=== PATIENT | female | born 1930 | race Caucasian/White ===

== ENCOUNTER 2018-01-13 11:26 | Observation (INO) | payer MEDICARE ==
[2018-01-13 13:17] LABS: VENOUS BLOOD GAS BASE EXCESS 4.7 mmol/L (0.0-2.0); VENOUS BLOOD GAS PCO2 58 mmHg (40-60); VENOUS BLOOD GAS PO2 22 mm/Hg (30-55); VENOUS BLOOD PH 7.35 (7.32-7.43)
--- NOTE | 2018-01-13 13:33 | ED PDOC ---
HPI: Skin/Bite Injury Chief Complaint (Provider): Redness, itchiness of the left arm History Per: Patient History/Exam Limitations: no limitations Onset/Duration Of Symptoms: Days Current Symptoms Are (Timing): Still Present Quality Of Symptoms: Painful, Itching Additional Complaint(s): 87 yo female with HTN and gastritis presents for evaluation of left arm pain and redness. Pt states 1 week ago she was walking by a plant which made her arm itchy. Pt states she does not know what type of plant but that it is bad because it will make your skin itchy. Pt states it has been itchy and has been getting more and more red. Pt states she otherwise feels well. Pt states that she also tripped a few days ago and caught herself against a wall with her left hand. <Halley Alvarado - Last Filed: 01/13/18 15:28> <Ramin Nolan - Last Filed: 01/13/18 18:25> Time Seen by Provider: 01/13/18 11:48 Chief Complaint (Nursing): Abnormal Skin Integrity Past Medical History Reviewed: Historical Data, Nursing Documentation, Vital Signs Vital Signs: Last Vital Signs Temp 97.9 F 01/13/18 11:49 Pulse 76 01/13/18 11:49 Resp 20 01/13/18 11:49 BP 143/67 01/13/18 11:49 Pulse Ox 98 01/13/18 11:49 - Medical History PMH: HTN - Surgical History Surgical History: No Surg Hx - Family History Family History: States: No Known Family Hx - Living Arrangements Living Arrangements: With Family <Halley Alvarado - Last Filed: 01/13/18 15:28> Vital Signs: Last Vital Signs Temp 98.4 F 01/13/18 18:12 Pulse 65 01/13/18 18:12 Resp 16 01/13/18 18:12 BP 150/84 01/13/18 18:12 Pulse Ox 99 01/13/18 16:15 <Ramin Nolan - Last Filed: 01/13/18 18:25> - Home Medications Home Medications: Ambulatory Orders Medication Instructions Recorded Furosemide [Lasix] 80 mg PO MO 01/13/18 Metoprolol Tartrate [Lopressor] 100 mg PO Q12 01/13/18 Pantoprazole Sodium [Protonix] 40 mg PO DAILY 01/13/18 RX: Hydroxyurea [Hydrea] 500 mg PO HS 01/13/18 RX: Ibuprofen [Motrin Tab] 600 mg PO Q8 PRN 01/13/18 RX: Meclizine [Meclizine*] 25 mg PO Q8 PRN 01/13/18 - Allergies Allergies/Adverse Reactions: Allergies Allergy/AdvReac Type Severity Reaction Status Date / Time No Known Allergies Allergy Verified 01/13/18 11:49 Review of Systems ROS Statement: Except As Marked, All Systems Reviewed And Found Negative Constitutional: Negative for: Fever, Chills Skin: Positive for: Other <Halley Alvarado - Last Filed: 01/13/18 15:28> Physical Exam - Reviewed Nursing Documentation Reviewed: Yes Vital Signs Reviewed: Yes - Physical Exam Appears: Positive for: Well, Non-toxic, No Acute Distress Head Exam: Positive for: ATRAUMATIC, NORMAL INSPECTION, NORMOCEPHALIC Skin: Positive for: Warm. Negative for: Normal Color ((+) erythema and edema of the left arm from mid-humerus to the mid-forearm, central open area; non- blanching ) Eye Exam: Positive for: Normal appearance ENT: Positive for: Normal ENT Inspection Neck: Positive for: Normal, Painless ROM Cardiovascular/Chest: Positive for: Regular Rate, Rhythm Respiratory: Positive for: Normal Breath Sounds. Negative for: Accessory Muscle Use, Respiratory Distress Back: Positive for: Normal Inspection Extremity: Positive for: Normal ROM Neurologic/Psych: Positive for: Alert, Oriented <Halley Alvarado - Last Filed: 01/13/18 15:28> - Laboratory Results Result Diagrams: 01/13/18 13:14 01/13/18 13:14 - ECG O2 Sat by Pulse Oximetry: 98 <Halley Alvarado - Last Filed: 01/13/18 15:28> - Laboratory Results Result Diagrams: 01/13/18 13:14 01/13/18 13:14 <Ramin Nolan - Last Filed: 01/13/18 18:25> Medical Decision Making Medical Decision Making: Labs normal. Pt seen and examined by Dr. Nolan. Discussed admission with Dr. Quesada <Halley Alvarado - Last Filed: 01/13/18 15:28> Disposition - Disposition Disposition: Routine/Home Disposition Time: 16:14 - Pt Status Changed To: Hospital Disposition Of: Observation - Admit Certification Admit to Inpatient:: OBS M/S - POA Present On Arrival: None <Halley Alvarado - Last Filed: 01/13/18 15:28> <Ramin Nolan - Last Filed: 01/13/18 18:25> - Clinical Impression Clinical Impression: Cellulitis - Disposition Condition: GOOD Instructions: Cellulitis and Erysipelas (Skin Infections) Forms: [facility] [employer] (Japanese) Addendum Addendum: 01/13/18 18:25 Reviewed PA chart, and agree. <Ramin Nolan - Last Filed: 01/13/18 18:25>
[2018-01-13 13:50] LABS: BASO # 0.3 K/uL (0.0-0.2); BASO % 4.7 % (0.0-2.0); EOS # 0.6 K/uL (0.0-0.7); EOS % 8.6 % (0.0-4.0); HEMOGLOBIN 17.2 g/dL (12.0-16.0); LYMPH # 1.4 K/uL (1.0-4.3); LYMPH % 20.3 % (20.0-40.0); MEAN CELL VOLUME 73.8 fl (81.0-99.0); MEAN CORPUSCULAR HEMOGLOBIN 23.4 pg (27.0-31.0); MEAN CORPUSCULAR HGB CONC 31.8 g/dL (33.0-37.0); MEAN PLATELET VOLUME 8.9 fl (7.2-11.7); MONO # 0.6 K/uL (0.0-0.8); MONO % 8.7 % (0.0-10.0); NEUT # 3.9 K/uL (1.8-7.0); NEUT % 57.7 % (50.0-75.0); NRBC % 0.2 % (0.0-0.0); PLATELET COUNT 187 K/uL (130-400); RBC 7.33 Mil/uL (3.80-5.20); RED CELL DISTRIBUTION WIDTH 21.4 % (11.5-14.5); WHITE BLOOD COUNT 6.8 K/uL (4.8-10.8)
[2018-01-13 13:55] LABS: ALBUMIN 3.3 g/dL (3.5-5.0); ALT/SGPT 29 U/L (9-52); AST/SGOT 45 U/L (14-36); BLOOD UREA NITROGEN 11 mg/dl (7-17); GFR NON-AFRICAN AMERICAN > 60
--- NOTE | 2018-01-13 14:10 | RAD ---
Date of service: 01/13/2018 PROCEDURE: Left Wrist Radiographs. HISTORY: wrist pain, fall COMPARISON: None. FINDINGS: BONES: There is a fracture of the distal radius of indeterminate chronicity. This could represent an old fracture. Clinical correlation is necessary. Fracture is likely at the level of the distal diaphysis though no actual cortical disruption is appreciated. The ulnar styloid process is intact. No carpal fracture is appreciated. Normal carpal alignment is maintained. 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 SOFT TISSUES: Normal. OTHER FINDINGS: None. IMPRESSION: Distal radial diaphyseal fracture of indeterminate age. 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
[2018-01-13 14:26] LABS: EOSINOPHIL 10 % (0-7); LYMPHOCYTE 24 % (20-50); MONOCYTE 8 % (0-10); NEUTROPHIL 58 % (42-75); TOTAL CELLS COUNTED 100
[2018-01-13 14:28] LABS: ANISOCYTOSIS MODERATE; LARGE PLATELETS PRESENT; PLATELET ESTIMATE NORMAL (NORMAL)
[2018-01-13] MEDS ORDERED: Clindamycin 600mg/50ml NS 600 MG/50 ML BAG IVPB SCH (14:45)
--- NOTE | 2018-01-13 15:50 | CP.PCM.HP ---
History of Present Illness - History of Present Illness History of Present Illness: 87 yo female with HTN, Polycythemia and gastritis presents to ED complaining of left arm pain and redness since Wednesday. Pt states 1 week ago she was working in the yard and she was in contact with a plant which made her arm itchy. She also reports that at the beginning start like a macular red rash. She states she does not know what type of plant that it is but endorses that also her neighbor has similar rash. Pt states more swelling since last night and an abrasion in the anterior elbow that she noticed this morning. Pt states she otherwise feels well. Pt states that she also tripped a few days ago and caught herself against a wall with her left hand. Some hematoma is noticed, she reports had a wrist fracture many yrs ago. She denies fever, chills, nausea, vomiting, abdominal pain or chest pain, No W/T/N. PMD: Dr Lux PMH: HTN, Polycythemia and gastritis FMH: non contributory PSH: cholecystectomy, TKR b/l NKDA Meds see billow SH: denies etoh, tobacco or illicit drugs, live in a house with her . ED course: CBC: H/H 17.4/54.1, no leukocytosys CMP wnl, VBG lactate 1.8 L wrist xr: distal radial dyaphiseal fracture indeterminate age. Present on Admission - Present on Admission Any Indicators Present on Admission: No Review of Systems - Review of Systems All systems: reviewed and no additional remarkable complaints except (HPI) Past Patient History - Past Social History Smoking Status: Never Smoked - CARDIAC Hx Hypertension: Yes - PSYCHIATRIC Hx Substance Use: No Meds Allergies/Adverse Reactions: Allergies Allergy/AdvReac Type Severity Reaction Status Date / Time No Known Allergies Allergy Verified 01/13/18 11:49 Physical Exam - Constitutional Appears: No Acute Distress - Head Exam Head Exam: NORMAL INSPECTION - Eye Exam Eye Exam: EOMI, PERRL - ENT Exam ENT Exam: Mucous Membranes Moist - Respiratory Exam Respiratory Exam: Clear to Auscultation Bilateral - Cardiovascular Exam Cardiovascular Exam: REGULAR RHYTHM, +S1, +S2. absent: Tachycardia - GI/Abdominal Exam GI & Abdominal Exam: Normal Bowel Sounds, Soft. absent: Distended, Tenderness - Extremities Exam Extremities exam: Positive for: pedal edema. Negative for: calf tenderness - Expanded Upper Extremities Exam Left Upper Arm exam: erythema (and swelling extensive from mid arm down to medial aspect of forearm, no warmess, tenderness or impotence noted, Radial pulses 2+, sensation and strenght preserved. Abrasion on anterior elbow surface, no exudate or oozing noted.) - Neurological Exam Neurological exam: Alert, CN II-XII Intact, Oriented x3 - Psychiatric Exam Psychiatric exam: Normal Mood - Skin Skin Exam: Erythema (apreciated on L upper extr,), Rash (macular erythematous noted diffuse on arms and legs) Results - Vital Signs Recent Vital Signs: Last Vital Signs Temp 97.9 F 01/13/18 11:49 Pulse 76 01/13/18 11:49 Resp 20 01/13/18 11:49 BP 143/67 01/13/18 11:49 Pulse Ox 98 01/13/18 14:18 - Labs Result Diagrams: 01/13/18 13:14 01/13/18 13:14 Labs: Laboratory Results - last 24 hr 01/13/18 01/13/18 01/13/18 12:55 13:14 13:14 WBC 6.8 RBC 7.33 H Hgb 17.2 H Hct 54.1 H MCV 73.8 L MCH 23.4 L MCHC 31.8 L RDW 21.4 H Plt Count 187 MPV 8.9 Neut % (Auto) 57.7 Lymph % (Auto) 20.3 [place] % (Auto) 8.7 Eos % (Auto) 8.6 H Baso % (Auto) 4.7 H Neut # (Auto) 3.9 Lymph # (Auto) 1.4 [place] # (Auto) 0.6 Eos # (Auto) 0.6 Baso # (Auto) 0.3 H Neutrophils % (Manual) 58 Lymphocytes % (Manual) 24 Monocytes % (Manual) 8 Eosinophils % (Manual) 10 H Platelet Estimate Normal Large Platelets Present Anisocytosis (manual) Moderate pO2 22 L VBG pH 7.35 VBG pCO2 58 VBG HCO3 26.9 VBG Total CO2 33.8 H VBG O2 Sat (Calc) 43.4 VBG Base Excess 4.7 H VBG Potassium 4.8 Sodium 133.0 136 Chloride 99.0 103 Glucose 101 Lactate 1.8 FiO2 21.0 Potassium 4.8 Carbon Dioxide 28 Anion Gap 10 BUN 11 Creatinine 0.6 L Est GFR ( Amer) > 60 Est GFR (Non-Af Amer) > 60 Random Glucose 96 Calcium 10.0 Total Bilirubin 2.4 H AST 45 H ALT 29 Alkaline Phosphatase 94 Total Protein 6.5 Albumin 3.3 L Globulin 3.3 Albumin/Globulin Ratio 1.0 Venous Blood Potassium 4.8 Assessment & Plan - Assessment and Plan (Free Text) Assessment: 87 yo female patient with PMH of HTN, polycythemia and gastritis admitted for evaluation of swelling and erythema in L upper arm, r/o cellulitis Plan: LUE swelling and erythema, r/o Cellulitis - likely secondary to superimposed infection - no warmess, induration or impotence - Afebrile, no leukocytosis - CMP wnl, lactate 1.8 - VSS - start Unasyn Q6h - Tylenol for pain and/or fever - f/u blood cx - f/u doppler US - admit to med/surg Polycythemia - uknown causes - H/H 17.4/54.1 - wbc and Plt wnl - continue home medication H/O HTN - controlled - continue home medicine DVT prophylaxis - lovenox
[2018-01-13] MEDS ORDERED: Saccharomyces Boulardi 250 mg Cap PO SCH (17:00)
--- NOTE | 2018-01-13 17:51 | US ---
Date of service: 01/13/2018 PROCEDURE: Left Upper Extremity Venous Doppler HISTORY: Cellulitis at the site of an IV line. R/o DVT COMPARISON: None available. TECHNIQUE: Left upper extremity deep veins, including the lower internal jugular, subclavian, axillary and brachial veins, were evaluated flow, compressibility and respiratory phasicity. FINDINGS: Normal flow, compressibility and respiratory phasicity was observed in the the left upper extremity deep veins. IMPRESSION: Left upper extremity: No evidence of deep venous thrombosis.
[2018-01-14 08:46] VITALS: BP 145/83; PULSE 65; RESP 18; TEMP 97.9; O2SAT 95
[2018-01-14] MEDS ORDERED: Enoxaparin 40 mg Syringe SC SCH (09:00)
--- NOTE | 2018-01-14 10:20 | CP.PCM.DIS ---
Provider - Provider Date of Admission: 01/13/18 15:04 Attending physician: Linden Quesada MD Primary care physician: Dr Claudio Lux Time Spent in preparation of Discharge (in minutes): 30 Diagnosis - Discharge Diagnosis (1) Cellulitis of left upper arm Status: Acute (2) Polycythemia Status: Chronic (3) Hypertension Status: Chronic Hospital Course - Lab Results Lab Results: Most Recent Lab Values WBC 6.8 K/uL (4.8-10.8) 01/13/18 13:14 RBC 7.33 Mil/uL (3.80-5.20) H 01/13/18 13:14 Hgb 17.2 g/dL (12.0-16.0) H 01/13/18 13:14 Hct 54.1 % (34.0-47.0) H 01/13/18 13:14 MCV 73.8 fl (81.0-99.0) L 01/13/18 13:14 MCH 23.4 pg (27.0-31.0) L 01/13/18 13:14 MCHC 31.8 g/dL (33.0-37.0) L 01/13/18 13:14 RDW 21.4 % (11.5-14.5) H 01/13/18 13:14 Plt Count 187 K/uL (130-400) 01/13/18 13:14 MPV 8.9 fl (7.2-11.7) 01/13/18 13:14 Neut % (Auto) 57.7 % (50.0-75.0) 01/13/18 13:14 Lymph % (Auto) 20.3 % (20.0-40.0) 01/13/18 13:14 [place] % (Auto) 8.7 % (0.0-10.0) 01/13/18 13:14 Eos % (Auto) 8.6 % (0.0-4.0) H 01/13/18 13:14 Baso % (Auto) 4.7 % (0.0-2.0) H 01/13/18 13:14 Neut # (Auto) 3.9 K/uL (1.8-7.0) 01/13/18 13:14 Lymph # (Auto) 1.4 K/uL (1.0-4.3) 01/13/18 13:14 [place] # (Auto) 0.6 K/uL (0.0-0.8) 01/13/18 13:14 Eos # (Auto) 0.6 K/uL (0.0-0.7) 01/13/18 13:14 Baso # (Auto) 0.3 K/uL (0.0-0.2) H 01/13/18 13:14 Neutrophils % (Manual) 58 % (42-75) 01/13/18 13:14 Lymphocytes % (Manual) 24 % (20-50) 01/13/18 13:14 Monocytes % (Manual) 8 % (0-10) 01/13/18 13:14 Eosinophils % (Manual) 10 % (0-7) H 01/13/18 13:14 Platelet Estimate Normal (NORMAL) 01/13/18 13:14 Large Platelets Present 01/13/18 13:14 Anisocytosis (manual) Moderate 01/13/18 13:14 pO2 22 mm/Hg (30-55) L 01/13/18 12:55 VBG pH 7.35 (7.32-7.43) 01/13/18 12:55 VBG pCO2 58 mmHg (40-60) 01/13/18 12:55 VBG HCO3 26.9 mmol/L 01/13/18 12:55 VBG Total CO2 33.8 mmol/L (22-28) H 01/13/18 12:55 VBG O2 Sat (Calc) 43.4 % (40-65) 01/13/18 12:55 VBG Base Excess 4.7 mmol/L (0.0-2.0) H 01/13/18 12:55 VBG Potassium 4.8 mmol/L (3.6-5.2) 01/13/18 12:55 Sodium 133.0 mmol/L (132-148) 01/13/18 12:55 Chloride 99.0 mmol/L (98-107) 01/13/18 12:55 Glucose 101 mg/dL (65-105) 01/13/18 12:55 Lactate 1.8 mmol/L (0.7-2.1) 01/13/18 12:55 FiO2 21.0 % 01/13/18 12:55 Sodium 136 mmol/l (132-148) 01/13/18 13:14 Potassium 4.8 MMOL/L (3.6-5.0) 01/13/18 13:14 Chloride 103 mmol/L (98-107) 01/13/18 13:14 Carbon Dioxide 28 mmol/L (22-30) 01/13/18 13:14 Anion Gap 10 (10-20) 01/13/18 13:14 BUN 11 mg/dl (7-17) 01/13/18 13:14 Creatinine 0.6 mg/dl (0.7-1.2) L 01/13/18 13:14 Est GFR ( Amer) > 60 01/13/18 13:14 Est GFR (Non-Af Amer) > 60 01/13/18 13:14 Random Glucose 96 mg/dL (65-105) 01/13/18 13:14 Calcium 10.0 mg/dL (8.4-10.2) 01/13/18 13:14 Total Bilirubin 2.4 mg/dl (0.2-1.3) H 01/13/18 13:14 AST 45 U/L (14-36) H 01/13/18 13:14 ALT 29 U/L (9-52) 01/13/18 13:14 Alkaline Phosphatase 94 U/L (38-126) 01/13/18 13:14 Total Protein 6.5 G/DL (6.3-8.2) 01/13/18 13:14 Albumin 3.3 g/dL (3.5-5.0) L 01/13/18 13:14 Globulin 3.3 gm/dL (2.2-3.9) 01/13/18 13:14 Albumin/Globulin Ratio 1.0 (1.0-2.1) 01/13/18 13:14 Venous Blood Potassium 4.8 mmol/L (3.6-5.2) 01/13/18 12:55 - Hospital Course Hospital Course: 87 yo female with HTN, Polycythemia and gastritis presents to ED complaining of left arm pain and redness since Wednesday. Pt states 1 week ago she was working in the yard and she was in contact with a plant which made her arm itchy. She sta sunday she does not know what type of plant that it is but endorses that also her neighbor has similar rash. Pt states worsening swelling since 2 days ago and an abrasion in the anterior elbow that she noticed this morning. Patient admitted for observation and Unasyn IV overnight. Afebrile, no leukocytosis, H/H 17.4/54.1, CMP wnl, lactate 1.8. VSS, swelling and erythema much improve will d/c to home with instructions to f/u with PCP in 1 week and Augmentin Rx sent to her pharmacy to complete 10 days treatment. Blood cx pending will f/u. Discharge Exam - Head Exam Head Exam: NORMAL INSPECTION - Eye Exam Eye Exam: EOMI, PERRL - ENT Exam ENT Exam: Mucous Membranes Moist - Respiratory Exam Respiratory Exam: Clear to PA & Lateral - Cardiovascular Exam Cardiovascular Exam: REGULAR RHYTHM, +S1, +S2. absent: Tachycardia - GI/Abdominal Exam GI & Abdominal Exam: Normal Bowel Sounds, Soft. absent: Distended, Tenderness - Extremities Exam Additional comments: L arm: improving erythema and swelling from mid arm down to medial aspect of forearm, no warmess, tenderness or impotence noted, Radial pulses 2+, sensation and strenght preserved. Abrasion on anterior elbow surface, no exudate or oozing noted. b/l lower extr pitting edema - Neurological Exam Neurological exam: Alert, CN II-XII Intact, Oriented x3 - Additional Findings Additional findings: erythema and swelling in L arm and medial aspect of forearm. Abrasion on anterior elbow surface, no exudate or oozing noted. Discharge Plan - Discharge Medications Prescriptions: Amoxicillin/Potassium Clav [Augmentin 500 mg-125 mg] 1 tab PO Q12H 10 Days #20 tab - Follow Up Plan Condition: GOOD Disposition: HOME/ ROUTINE Instructions: Cellulitis and Erysipelas (Skin Infections) Additional Instructions: f/u with PCP in 1 week Referrals: Claudio Lux MD [Staff Provider] -
--- NOTE | 2018-01-16 17:36 | CP.PCM.PCO ---
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 Rx sent to pharmacy
== END 2018-01-14 12:38 | disposition home or self-care (01) ==
LOC: H.ER 11:26 → H.ERHOLD 15:04 → H.MEDSURG1 18:10
PROVIDERS: ADMIT Hospitalist; ATTEND Hospitalist
DX: L03.114 Cellulitis of left upper limb (principal); I10 Essential (primary) hypertension; K29.70 Gastritis, unspecified, without bleeding; D75.1 Secondary polycythemia
CPT/HCPCS: 73110; 80053; 82803; 85025; 87040; 87070; 93971; 99284; G0378; J0295; J1650

== ENCOUNTER 2018-03-01 11:35 | Observation (INO) | payer MEDICARE ==
--- NOTE | 2018-03-01 12:07 | ED PDOC ---
HPI: Chest Pain Time Seen by Provider: 03/01/18 11:55 Chief Complaint (Nursing): Chest Pain History Per: Patient Onset/Duration Of Symptoms: Days (1) Current Symptoms Are (Timing): Intermittent Episodes Severity: Mild Quality: Tightness Associated Symptoms: denies: Nausea Exacerbating Factors: None Additional Complaint(s): Substernal chest pain since this AM. Denies SOB. Nonradiating. Denies cough or fever. Past Medical History Vital Signs: Last Vital Signs Temp 98.1 F 03/01/18 11:44 Pulse 66 03/01/18 11:44 Resp 20 03/01/18 11:44 BP 147/75 03/01/18 11:44 Pulse Ox 98 03/01/18 11:44 - Medical History PMH: Gastritis, HTN Denies: Chronic Kidney Disease - Family History Family History: States: Unknown Family Hx - Home Medications Home Medications: Ambulatory Orders Medication Instructions Recorded Furosemide [Lasix] 80 mg PO DAILY 01/13/18 Hydroxyurea [Hydrea] 500 mg PO BID 01/13/18 Ibuprofen [Motrin Tab] 600 mg PO Q8 PRN 01/13/18 Meclizine [Meclizine*] 25 mg PO Q8 PRN 01/13/18 Metoprolol Tartrate [Lopressor] 100 mg PO Q12 01/13/18 Pantoprazole Sodium [Protonix] 40 mg PO DAILY 01/13/18 - Allergies Allergies/Adverse Reactions: Allergies Allergy/AdvReac Type Severity Reaction Status Date / Time No Known Allergies Allergy Verified 01/13/18 11:49 Review of Systems ROS Statement: Except As Marked, All Systems Reviewed And Found Negative Cardiovascular: Positive for: Chest Pain Physical Exam - Reviewed Nursing Documentation Reviewed: Yes Vital Signs Reviewed: Yes - Physical Exam Appears: Positive for: Non-toxic, No Acute Distress Head Exam: Positive for: ATRAUMATIC, NORMAL INSPECTION, NORMOCEPHALIC Skin: Positive for: Normal Color, Warm, DRY Eye Exam: Positive for: EOMI, Normal appearance, PERRL ENT: Positive for: Normal ENT Inspection Neck: Positive for: Normal, Painless ROM Cardiovascular/Chest: Positive for: Regular Rate, Rhythm Respiratory: Positive for: CNT, Normal Breath Sounds Gastrointestinal/Abdominal: Positive for: Normal Exam, Soft Back: Positive for: Normal Inspection Extremity: Positive for: Normal ROM, Swelling (Lower ext bilat) Neurologic/Psych: Positive for: Alert, Oriented - Laboratory Results Result Diagrams: 03/01/18 12:15 03/01/18 14:01 - ECG O2 Sat by Pulse Oximetry: 98 Disposition - Clinical Impression Clinical Impression: Chest pain - Patient ED Disposition Is Patient to be Admitted: Yes - Disposition Disposition Time: 14:30 Condition: FAIR Forms: [facility] (Czech) - Pt Status Changed To: Hospital Disposition Of: Observation - POA Present On Arrival: None
[2018-03-01 12:39] LABS: BASO % 0.4 % (0.0-2.0); EOS # 0.1 K/uL (0.0-0.7); EOS % 2.3 % (0.0-4.0); HEMOGLOBIN 17.1 g/dL (12.0-16.0); LYMPH # 0.9 K/uL (1.0-4.3); LYMPH % 14.3 % (20.0-40.0); MEAN CELL VOLUME 72.4 fl (81.0-99.0); MEAN CORPUSCULAR HEMOGLOBIN 22.8 pg (27.0-31.0); MEAN CORPUSCULAR HGB CONC 31.5 g/dL (33.0-37.0); MEAN PLATELET VOLUME 8.6 fl (7.2-11.7); MONO # 0.6 K/uL (0.0-0.8); MONO % 10.2 % (0.0-10.0); NEUT # 4.4 K/uL (1.8-7.0); NEUT % 72.8 % (50.0-75.0); NRBC % 0.2 % (0.0-0.0); RBC 7.5 Mil/uL (3.80-5.20); RED CELL DISTRIBUTION WIDTH 23.1 % (11.5-14.5); WHITE BLOOD COUNT 6.1 K/uL (4.8-10.8)
--- NOTE | 2018-03-01 13:39 | RAD ---
Date of service: 03/01/2018 HISTORY: Chest pain COMPARISON: No prior. TECHNIQUE: Chest PA and lateral FINDINGS: LUNGS: No active pulmonary disease. PLEURA: No significant pleural effusion identified. No pneumothorax apparent. CARDIOVASCULAR: Atherosclerotic calcifications identified primarily aortic arch. Venous access catheter in satisfactory position. Cardiomegaly. Central pulmonary vascular congestion. No pulmonary vascular congestion. OSSEOUS STRUCTURES: No significant abnormalities. VISUALIZED UPPER ABDOMEN: Normal. OTHER FINDINGS: None. IMPRESSION: No active disease.
[2018-03-01 14:24] LABS: ALB/GLOB RATIO 1.1 (1.0-2.1); ALBUMIN 3.5 g/dL (3.5-5.0); ALT/SGPT 27 U/L (9-52); AST/SGOT 46 U/L (14-36); BLOOD UREA NITROGEN 15 mg/dl (7-17); GFR NON-AFRICAN AMERICAN > 60
[2018-03-01 15:02] LABS: URINE BACTERIA MOD (<OCC); URINE BILIRUBIN NEGATIVE (NEGATIVE); URINE BLOOD LARGE (NEGATIVE); URINE CLARITY TURBID (Clear); URINE GLUCOSE (UA) NEG (Normal); URINE LEUKOCYTE ESTERASE LARGE Leu/uL (Negative); URINE PROTEIN 100 mg/dL (NEGATIVE); WBC CLUMPS MANY /hpf
[2018-03-01 15:05] LABS: URINE COLOR DARK YELLOW (YELLOW)
--- NOTE | 2018-03-01 15:13 | CP.PCM.HP ---
History of Present Illness - History of Present Illness History of Present Illness: 88 y/O female with a PMHx of HTN, Polycythemia, vertigo, and gastritis presents to ED complaining of substernal chest pain since this morning. Pain was 6/10, located substernally, on the left side, just below the pts breast, it sharp like in character, constant, and without radiating. It resolved on its own. The pain presented while she was sitting at home. She denied any other symptoms or possible triggering event. The pain resolved on its own in the ED and the pt denied pain upon evaluation. She denied any associated SOB, Palpitations, Left arm/jaw pain, N/V/D/C, urinary symptoms, back pain. She denies any changes to exercise tolerance nor does she endorse any changes to conditioning. She sleeps flat on her back. She reports having chronic pedal edema and she does not notice any acute changes to it. No other complaints nor concerns. ROS: 12 systems reviewed, found to be negative unless other polo mentioned in HPI PMD: Dr Lux ALL: NKDA PMH: HTN, Polycythemia, Vertigo, Gastritis Meds: metoprolol 100mg Q12H, Lasix 80mg QD, Hydroxyurea 500mg, Meclizine prn PSH: cholecystectomy, B/L TKR (in [place]) FMH: non contributory SH: denies etoh, tobacco or illicit drugs, live in a house with her . Present on Admission - Present on Admission Any Indicators Present on Admission: No History of DVT/PE: No History of Uncontrolled Diabetes: No Urinary Catheter: No Decubitus Ulcer Present: No Past Patient History - Past Medical History & Family History Past Medical History?: Yes - Past Social History Smoking Status: Never Smoked Alcohol: None Drugs: Denies Home Situation {Lives}: With Family - CARDIAC Hx Hypertension: Yes - PULMONARY Hx Respiratory Disorders: No - NEUROLOGICAL Hx Neurological Disorder: No - HEENT Hx HEENT Problems: No - RENAL Hx Chronic Kidney Disease: No - ENDOCRINE/METABOLIC Hx Endocrine Disorders: No - HEMATOLOGICAL/ONCOLOGICAL Hx Blood Disorders: No - INTEGUMENTARY Hx Dermatological Problems: No - MUSCULOSKELETAL/RHEUMATOLOGICAL Hx Musculoskeletal Disorders: No Hx Falls: No - GASTROINTESTINAL Hx Gastritis: Yes - GENITOURINARY/GYNECOLOGICAL Hx Genitourinary Disorders: No - PSYCHIATRIC Hx Psychophysiologic Disorder: No Hx Substance Use: No - SURGICAL HISTORY Hx Orthopedic Surgery: Yes Other/Comment: bilateral knee surgery - ANESTHESIA Hx Anesthesia: Yes Hx Anesthesia Reactions: No Hx Malignant Hyperthermia: No Meds Allergies/Adverse Reactions: Allergies Allergy/AdvReac Type Severity Reaction Status Date / Time No Known Allergies Allergy Verified 01/13/18 11:49 Physical Exam - Constitutional Appears: Non-toxic, No Acute Distress - Head Exam Head Exam: ATRAUMATIC, NORMOCEPHALIC - Eye Exam Eye Exam: EOMI, Normal appearance, PERRL. absent: Scleral icterus - ENT Exam ENT Exam: Mucous Membranes Moist - Neck Exam Neck exam: Positive for: Full Rom, Normal Inspection. Negative for: Lymph adenopathy - Respiratory Exam Respiratory Exam: Rales (bibasilar rales), NORMAL BREATHING PATTERN. absent: Accessory Muscle Use, Clear to Auscultation Bilateral, Rhonchi, Wheezes, Respiratory Distress - Cardiovascular Exam Cardiovascular Exam: REGULAR RHYTHM, RRR, +S1, +S2. absent: Tachycardia, JVD, Systolic Murmur - GI/Abdominal Exam GI & Abdominal Exam: Normal Bowel Sounds, Soft. absent: Tenderness - Extremities Exam Extremities exam: Positive for: normal capillary refill, pedal edema (1+ pitting edema b/l, chronic skin changes correlating with chronic venous insuff or lymphadema, various areas of healing abrasions), pedal pulses present. Negative for: calf tenderness, tenderness - Neurological Exam Neurological exam: Alert, CN II-XII Intact, Normal Gait, Oriented x3 - Skin Skin Exam: Dry, Intact, Warm Additional comments: no rash in area of chest pain (left lower chest) Results - Vital Signs Recent Vital Signs: Last Vital Signs Temp 97.9 F 03/01/18 14:35 Pulse 68 03/01/18 14:35 Resp 21 03/01/18 14:35 BP 137/83 03/01/18 14:35 Pulse Ox 98 03/01/18 14:35 - Labs Result Diagrams: 03/01/18 12:15 03/01/18 14:01 Labs: Laboratory Results - last 24 hr 03/01/18 03/01/18 03/01/18 12:15 14:01 14:40 WBC 6.1 RBC 7.50 H Hgb 17.1 H Hct 54.2 H MCV 72.4 L MCH 22.8 L MCHC 31.5 L RDW 23.1 H Plt Count 296 D MPV 8.6 Neut % (Auto) 72.8 Lymph % (Auto) 14.3 L Pepin % (Auto) 10.2 H Eos % (Auto) 2.3 Baso % (Auto) 0.4 Neut # (Auto) 4.4 Lymph # (Auto) 0.9 L Pepin # (Auto) 0.6 Eos # (Auto) 0.1 Baso # (Auto) 0.0 Sodium 138 Potassium 5.0 Chloride 105 Carbon Dioxide 26 Anion Gap 12 BUN 15 Creatinine 0.6 L Est GFR ( Amer) > 60 Est GFR (Non-Af Amer) > 60 Random Glucose 87 Calcium 10.0 Total Bilirubin 3.1 H AST 46 H ALT 27 Alkaline Phosphatase 111 Troponin I < 0.0120 Total Protein 6.8 Albumin 3.5 Globulin 3.3 Albumin/Globulin Ratio 1.1 Urine Color Dark yellow Urine Clarity Turbid Urine pH 7.0 Ur Specific [place] 1.012 Urine Protein 100 Urine Glucose (UA) Neg Urine Ketones Negative Urine Blood Large Urine Nitrate Positive H Urine Bilirubin Negative Urine Urobilinogen 2.0 H Ur Leukocyte Esterase Large Urine RBC (Auto) 152 H Urine WBC Clumps (Auto) Many H Urine Microscopic WBC 1054 H Urine Bacteria Mod H Assessment & Plan - Assessment and Plan (Free Text) Assessment: 88 y/o female with a PMHx of HTN, polycythemia, gastritis, and vertigo admitted for chest pain and pedal edema. Plan: 1) Chest Pain, rule out ACS -EKG on presentation: NSR ~66bpm, LAD, p-mitrale, episodic arrythmia, no acute ST changes -Troponin <0.0120 -hemodynamically stable -given ASA 325mg -resume home metroprolol, lasix -troponin Q6H -Repeat EKG in AM -ECHO -Pro-BNP -tele monitoring 2) Pedal Edema -CHF workup -ECHO -Pro-BNP pending -B/L Duplex u/s -resume lasix -monitor 3) UTI -Rocephin 1gm x1 4) Polycythemia -prior H/H reviewed, stable -resume Hydroxyurea 5) Diet -Heart healthy diet 6) Prophylaxis -Lovenox 40mg SC QD 7) Code Status -full code
[2018-03-01] MEDS ORDERED: cefTRIAXone (Rocephin) 1 gm Inj ONE (16:10)
--- NOTE | 2018-03-01 17:19 | US ---
Date of service: 03/01/2018 PROCEDURE: Bilateral lower extremity venous duplex Doppler. HISTORY: pedal edema COMPARISON: None available. TECHNIQUE: Bilateral common femoral, superficial femoral, popliteal and posterior tibial veins were evaluated. Flow was assessed with color Doppler, compressibility, assessment of phasic flow and augmentation response. FINDINGS: COMMON FEMORAL VEIN: Right CFV: Unremarkable. Left CFV: Unremarkable. SUPERFICIAL FEMORAL VEIN: Right SFV: Unremarkable. Left SFV: Unremarkable. POPLITEAL VEIN: Right Popliteal: Unremarkable. Left Popliteal: Unremarkable. POSTERIOR TIBIAL VEIN: Right PTV: Unremarkable. Left PTV: Unremarkable. OTHER FINDINGS: Bilateral lower extremity popliteal/calf edema which is approximately symmetrical IMPRESSION: No evidence of deep venous thrombosis.
[2018-03-01 17:46] LABS: B-TYPE NATRIURETIC PEPTIDE 1440 pg/ml (0-900); HDL CHOLESTEROL 50 MG/DL (30-70); LDL CHOLESTEROL 40 mg/dL (0-129)
--- NOTE | 2018-03-01 20:04 | CARD ---
APPROVED REPORT Date of service: 03/01/2018 EKG Measurement Heart [id number] <Conclusion> Normal sinus rhythm with sinus arrhythmia Left atrial enlargement Left axis deviation Low voltage QRS Poor R wave progression Abnormal ECG
[2018-03-02 06:22] LABS: ALB/GLOB RATIO 0.9 (1.0-2.1); ALBUMIN 2.8 g/dL (3.5-5.0); ALT/SGPT 30 U/L (9-52); AST/SGOT 39 U/L (14-36); BLOOD UREA NITROGEN 18 mg/dl (7-17); CALCIUM 9.7 mg/dL (8.4-10.2); GFR NON-AFRICAN AMERICAN > 60
[2018-03-02] MEDS ORDERED: Enoxaparin 40 mg Syringe SC SCH (09:00)
[2018-03-02] MEDS ORDERED: Pantoprazole 40 mg EC Tab PO SCH (09:00)
[2018-03-02 09:25] LABS: HEMOGLOBIN 16.3 g/dL (12.0-16.0); MEAN CELL VOLUME 75.7 fl (81.0-99.0); MEAN CORPUSCULAR HEMOGLOBIN 22.8 pg (27.0-31.0); MEAN CORPUSCULAR HGB CONC 30.1 g/dL (33.0-37.0); RBC 7.14 Mil/uL (3.80-5.20); RED CELL DISTRIBUTION WIDTH 22.4 % (11.5-14.5); WHITE BLOOD COUNT 6.4 K/uL (4.8-10.8)
--- NOTE | 2018-03-02 12:29 | CP.PCM.PN ---
Subjective - Date & Time of Evaluation Date of Evaluation: 03/02/18 Time of Evaluation: 10:00 - Subjective Subjective: Pt seen/evaluated at bedside this morning; sitting in bed eating breakfast. Denies complaints of chest pain at this time. Objective - Vital Signs/Intake and Output Vital Signs (last 24 hours): Temp Pulse Resp BP Pulse Ox 97.9 F 71 20 133/73 96 03/02/18 12:00 03/02/18 12:00 03/02/18 12:00 03/02/18 12:00 03/02/18 12:00 - Medications Medications: Current Medications Enoxaparin Sodium (Lovenox) 40 mg SC DAILY [facility]; Protocol Last Admin: 03/02/18 10:00 Dose: 40 mg Furosemide (Lasix) 80 mg PO DAILY [facility] Last Admin: 03/02/18 09:59 Dose: 80 mg Hydroxyurea (Hydrea) 500 mg PO BID [facility] Last Admin: 03/02/18 09:59 Dose: 500 mg Metoprolol Tartrate (Lopressor) 100 mg PO Q12 [facility] Last Admin: 03/02/18 09:59 Dose: 100 mg Pantoprazole Sodium (Protonix Ec Tab) 40 mg PO DAILY [facility] Last Admin: 03/02/18 10:00 Dose: 40 mg - Labs Labs: 03/02/18 04:40 03/02/18 04:40 - Constitutional Appears: No Acute Distress - Head Exam Head Exam: NORMOCEPHALIC - Eye Exam Eye Exam: Normal appearance - ENT Exam ENT Exam: Mucous Membranes Moist - Respiratory Exam Respiratory Exam: Clear to Ausculation Bilateral, NORMAL BREATHING PATTERN - Cardiovascular Exam Cardiovascular Exam: REGULAR RHYTHM, +S1, +S2 - GI/Abdominal Exam GI & Abdominal Exam: Soft, Normal Bowel Sounds. absent: Tenderness - Extremities Exam Additional comments: 2+ edema in lower extremities - Neurological Exam Neurological Exam: Alert, Oriented x3 Assessment and Plan - Assessment and Plan (Free Text) Assessment: 88 yo female with a PMHx of HTN, polycythemia, gastritis, and vertigo admitted for chest pain and pedal edema; also has elevated bilirubin level. Has been stable on telemetry floors. Plan: 1) Chest Pain, rule out ACS -EKG on presentation: NSR ~66bpm, LAD, no acute ST changes -Troponin x3 <0.0120 -Hemodynamically stable -Given ASA 325mg -Resume home metroprolol, lasix -Pro-BNP elevated at 1440 -Echo done, read pending 2) Pedal Edema -CHF workup: echo, probnp -Pro-BNP elevated -B/L Duplex u/s done, pending read -Resume lasix 3) UTI - Rocephin 1gm x1 - Urine culture results pending 4) Hyperbilirubinemia - Abd u/s 5) Polycythemia - Prior H/H reviewed, stable - Resume Hydroxyurea 6) Diet - Heart healthy diet 7) Prophylaxis - Lovenox 40mg SC QD 8) Code Status - Full code
--- NOTE | 2018-03-02 13:11 | CARD ---
APPROVED REPORT Date of service: 03/02/2018 EXAM: Two-dimensional and M-mode echocardiogram with Doppler and color Doppler. Other Information Quality : GoodRhythm : Pacemaker INDICATION Peripheral Edema Chest Pain 2D DIMENSIONS IVSd0.99 (0.7-1.1cm)LVDd4.65 (3.9-5.9cm) LVOT Diameter1.83 (1.8-2.4cm)PWd1.06 (0.7-1.1cm) IVSs1.27 (0.8-1.2cm)LVDs3.85 (2.5-4.0cm) FS (%) 17.4 %PWs1.29 (0.8-1.2cm) M-Mode DIMENSIONS Left Atrium (MM)5.97 (2.5-4.0cm)IVSd0.94 (0.7-1.1cm) Aortic Root2.44 (2.2-3.7cm)LVDd5.06 (4.0-5.6cm) Aortic Cusp Exc.1.71 (1.5-2.0cm)PWd1.09 (0.7-1.1cm) IVSs1.18 cmFS (%) 40 % LVDs3.03 (2.0-3.8cm)PWs1.56 cm Aortic Valve AoV Peak Qcbfzprg720.1cm/sAoV VTI37.3cmAO Peak GR.12mmHg LVOT Peak Jabvkxen146.5cm/sLVOT VTI25.08cmAO Mean GR.6mmHg MELVIN (VMAX)1.34wt2FTH (VTI)1.04cm2 Mitral Valve MV E Znqndxih45.3cm/sMV DECEL [id number] A Qkhuxbzq89.0cm/s MV GLT14czT/A ratio1.7MVA (PHT)3.66cm2 TDI E/Lateral E'0.0E/Medial E'0.0 Tricuspid Valve TR Peak Buzromxo511ed/sRAP REXWKSCD15fbIvFY Peak Gr.46mmHg LECE10vpVu LEFT VENTRICLE The left ventricle is normal size. There is normal left ventricular wall thickness. The left ventricular systolic function is normal. The estimated ejection fraction is 60-65% No regional wall motion abnormalities noted.. Transmitral Doppler flow pattern is Grade II-pseudonormal filling dynamics. No left ventricle thrombus noted on this study. There is no ventricular septal defect visualized. There is no left ventricular aneurysm. There is no mass noted in the left ventricle. RIGHT VENTRICLE The right ventricle is normal size. There is normal right ventricular wall thickness. The right ventricular systolic function is normal. ATRIA The left atrium is moderately dilated. The right atrium size is normal. The interatrial septum is intact with no evidence for an atrial septal defect. AORTIC VALVE The aortic valve is normal in structure. No aortic regurgitation is present. There is no aortic valvular stenosis. There is no aortic valvular vegetation. MITRAL VALVE The mitral valve is normal in structure. There is no evidence of mitral valve prolapse. There is no mitral valve stenosis. There is moderate mitral valve regurgitation noted. TRICUSPID VALVE The tricuspid valve is normal in structure. There is mild tricuspid valve regurgitation noted. RVSP is calculated at 60 mm Hg. There is no tricuspid valve prolapse or vegetation. There is no tricuspid valve stenosis. PULMONIC VALVE The pulmonary valve is normal in structure. There is no pulmonic valvular regurgitation. There is no pulmonic valvular stenosis. GREAT VESSELS The aortic root is normal in size. The ascending aorta is normal in size. The pulmonary artery is normal. The IVC is dilated PERICARDIAL EFFUSION There is no pericardial effusion. There is no pleural effusion. <Conclusion> The estimated ejection fraction is 60-65% The left atrium is moderately dilated. There is moderate mitral valve regurgitation noted. Transmitral Doppler flow pattern is Grade II-pseudonormal filling dynamics. There is mild tricuspid valve regurgitation noted. RVSP is calculated at 60 mm Hg. The IVC is dilated
--- NOTE | 2018-03-02 16:07 | US ---
Date of service: 03/02/2018 PROCEDURE: Left Upper Extremity Venous Doppler HISTORY: lymphedema on left arm COMPARISON: None available. TECHNIQUE: Left upper extremity deep veins, including the lower internal jugular, subclavian, axillary and brachial veins, were evaluated flow, compressibility and respiratory phasicity. FINDINGS: Normal flow, compressibility and respiratory phasicity was observed in the the left upper extremity deep veins. IMPRESSION: No evidence of deep venous thrombosis.
--- NOTE | 2018-03-02 16:07 | CP.PCM.DIS ---
<India Sahnia - Last Filed: 03/02/18 16:05> Provider - Provider Date of Admission: 03/01/18 14:29 Attending physician: Gee Roberts MD Primary care physician: Dr. Lux Time Spent in preparation of Discharge (in minutes): 20 Diagnosis - Discharge Diagnosis (1) Chest pain Status: Acute Comment: r/o ACS Hospital Course - Lab Results Lab Results: Most Recent Lab Values WBC 6.4 K/uL (4.8-10.8) 03/02/18 04:40 RBC 7.14 Mil/uL (3.80-5.20) H 03/02/18 04:40 Hgb 16.3 g/dL (12.0-16.0) H 03/02/18 04:40 Hct 54.0 % (34.0-47.0) H 03/02/18 04:40 MCV 75.7 fl (81.0-99.0) L D 03/02/18 04:40 MCH 22.8 pg (27.0-31.0) L 03/02/18 04:40 MCHC 30.1 g/dL (33.0-37.0) L 03/02/18 04:40 RDW 22.4 % (11.5-14.5) H 03/02/18 04:40 Plt Count 190 K/uL (130-400) D 03/02/18 04:40 MPV 8.6 fl (7.2-11.7) 03/01/18 12:15 Neut % (Auto) 72.8 % (50.0-75.0) 03/01/18 12:15 Lymph % (Auto) 14.3 % (20.0-40.0) L 03/01/18 12:15 Evans % (Auto) 10.2 % (0.0-10.0) H 03/01/18 12:15 Eos % (Auto) 2.3 % (0.0-4.0) 03/01/18 12:15 Baso % (Auto) 0.4 % (0.0-2.0) 03/01/18 12:15 Neut # (Auto) 4.4 K/uL (1.8-7.0) 03/01/18 12:15 Lymph # (Auto) 0.9 K/uL (1.0-4.3) L 03/01/18 12:15 Evans # (Auto) 0.6 K/uL (0.0-0.8) 03/01/18 12:15 Eos # (Auto) 0.1 K/uL (0.0-0.7) 03/01/18 12:15 Baso # (Auto) 0.0 K/uL (0.0-0.2) 03/01/18 12:15 Sodium 136 mmol/l (132-148) 03/02/18 04:40 Potassium 4.8 MMOL/L (3.6-5.0) 03/02/18 04:40 Chloride 105 mmol/L (98-107) 03/02/18 04:40 Carbon Dioxide 27 mmol/L (22-30) 03/02/18 04:40 Anion Gap 9 (10-20) L 03/02/18 04:40 BUN 18 mg/dl (7-17) H 03/02/18 04:40 Creatinine 0.6 mg/dl (0.7-1.2) L 03/02/18 04:40 Est GFR ( Amer) > 60 03/02/18 04:40 Est GFR (Non-Af Amer) > 60 03/02/18 04:40 POC Glucose (mg/dL) 130 mg/dL (65-110) H 03/02/18 11:09 Random Glucose 85 mg/dL (65-105) 03/02/18 04:40 Hemoglobin A1c 4.6 % (4.2-6.5) 03/01/18 16:10 Calcium 9.7 mg/dL (8.4-10.2) 03/02/18 04:40 Total Bilirubin 2.2 mg/dl (0.2-1.3) H 03/02/18 04:40 AST 39 U/L (14-36) H 03/02/18 04:40 ALT 30 U/L (9-52) 03/02/18 04:40 Alkaline Phosphatase 89 U/L (38-126) 03/02/18 04:40 Troponin I < 0.0120 ng/mL (0.00-0.120) 03/02/18 07:44 NT-Pro-B Natriuret Pep 1440 pg/ml (0-900) H 03/01/18 17:00 Total Protein 5.8 G/DL (6.3-8.2) L 03/02/18 04:40 Albumin 2.8 g/dL (3.5-5.0) L 03/02/18 04:40 Globulin 3.0 gm/dL (2.2-3.9) 03/02/18 04:40 Albumin/Globulin Ratio 0.9 (1.0-2.1) L 03/02/18 04:40 Triglycerides 65 mg/DL (0-149) 03/01/18 17:00 Cholesterol 92 mg/dL (0-199) 03/01/18 17:00 LDL Cholesterol Direct 40 mg/dL (0-129) 03/01/18 17:00 HDL Cholesterol 50 MG/DL (30-70) 03/01/18 17:00 Urine Color Dark yellow (YELLOW) 03/01/18 14:40 Urine Clarity Turbid (Clear) 03/01/18 14:40 Urine pH 7.0 (5.0-8.0) 03/01/18 14:40 Ur Specific [place] 1.012 (1.003-1.030) 03/01/18 14:40 Urine Protein 100 mg/dL (NEGATIVE) 03/01/18 14:40 Urine Glucose (UA) Neg mg/dL (Normal) 03/01/18 14:40 Urine Ketones Negative mg/dL (NEGATIVE) 03/01/18 14:40 Urine Blood Large (NEGATIVE) 03/01/18 14:40 Urine Nitrate Positive (NEGATIVE) H 03/01/18 14:40 Urine Bilirubin Negative (NEGATIVE) 03/01/18 14:40 Urine Urobilinogen 2.0 mg/dL (0.2-1.0) H 03/01/18 14:40 Ur Leukocyte Esterase Large Demetrius/uL (Negative) 03/01/18 14:40 Urine RBC (Auto) 152 /hpf (0-3) H 03/01/18 14:40 Urine WBC Clumps (Auto) Many /hpf (NONE) H 03/01/18 14:40 Urine Microscopic WBC 1054 /hpf (0-5) H 03/01/18 14:40 Urine Bacteria Mod (<OCC) H 03/01/18 14:40 - Hospital Course Hospital Course: 88 yo female with a PMHx of HTN, poly-cythemia, gastritis, and vertigo admitted for chest pain, r/o ACS. Also found to have elevated bili and lower extremity edema. Pt was admitted to telemetry for observation and chest pain resolved. EKG showed NSR at 66 bpm with no evidence of ischemia. Troponin neg x3 Q6-8 hrs apart. Echo showed EF 60-65%. Duplex of lower ext done and showed no DVT. Abdominal u/s done showed evidence of prior cholecystectomy and splenomegaly. Pt also found to have UTI - given 1 dose rocephin during admission. Pt's vitals remained stable overnight and today. She was seen/evaluated at bedside this morning; sitting in bed eating breakfast; denied complaints of chest pain. Given prescription for marcobid for UTI. To follow up with PMD in 1 week. Discharge Exam - Head Exam Head Exam: NORMOCEPHALIC - Eye Exam Eye Exam: Normal appearance - ENT Exam ENT Exam: Mucous Membranes Moist - Respiratory Exam Respiratory Exam: Clear to PA & Lateral, NORMAL BREATHING PATTERN, UNREMARKABLE - Cardiovascular Exam Cardiovascular Exam: REGULAR RHYTHM, +S1, +S2 - GI/Abdominal Exam GI & Abdominal Exam: Normal Bowel Sounds, Soft. absent: Tenderness - Extremities Exam Additional comments: no calf tenderness 2+ pitting edema - Neurological Exam Neurological exam: Alert, Oriented x3 - Psychiatric Exam Psychiatric exam: Normal Mood - Skin Skin Exam: Dry, Warm Discharge Plan - Discharge Medications Prescriptions: Nitrofurantoin Macrocrystals [Macrobid] 100 mg PO BID #10 cap - Follow Up Plan Condition: FAIR Disposition: HOME/ ROUTINE Instructions: Urinary Tract Infection, Adult (DC), Chest Pain (DC) Additional Instructions: hacer samuel con el doctor bryce en 1 semana Referrals: Claudio Lux MD [Family Provider] - <Gee Roberts - Last Filed: 03/02/18 17:34> Provider - Provider Date of Admission: 03/01/18 14:29 Attending physician: Gee Roberts MD Hospital Course - Lab Results Lab Results: Most Recent Lab Values WBC 6.4 K/uL (4.8-10.8) 03/02/18 04:40 RBC 7.14 Mil/uL (3.80-5.20) H 03/02/18 04:40 Hgb 16.3 g/dL (12.0-16.0) H 03/02/18 04:40 Hct 54.0 % (34.0-47.0) H 03/02/18 04:40 MCV 75.7 fl (81.0-99.0) L D 03/02/18 04:40 MCH 22.8 pg (27.0-31.0) L 03/02/18 04:40 MCHC 30.1 g/dL (33.0-37.0) L 03/02/18 04:40 RDW 22.4 % (11.5-14.5) H 03/02/18 04:40 Plt Count 190 K/uL (130-400) D 03/02/18 04:40 MPV 8.6 fl (7.2-11.7) 03/01/18 12:15 Neut % (Auto) 72.8 % (50.0-75.0) 03/01/18 12:15 Lymph % (Auto) 14.3 % (20.0-40.0) L 03/01/18 12:15 Evans % (Auto) 10.2 % (0.0-10.0) H 03/01/18 12:15 Eos % (Auto) 2.3 % (0.0-4.0) 03/01/18 12:15 Baso % (Auto) 0.4 % (0.0-2.0) 03/01/18 12:15 Neut # (Auto) 4.4 K/uL (1.8-7.0) 03/01/18 12:15 Lymph # (Auto) 0.9 K/uL (1.0-4.3) L 03/01/18 12:15 Evans # (Auto) 0.6 K/uL (0.0-0.8) 03/01/18 12:15 Eos # (Auto) 0.1 K/uL (0.0-0.7) 03/01/18 12:15 Baso # (Auto) 0.0 K/uL (0.0-0.2) 03/01/18 12:15 Sodium 136 mmol/l (132-148) 03/02/18 04:40 Potassium 4.8 MMOL/L (3.6-5.0) 03/02/18 04:40 Chloride 105 mmol/L (98-107) 03/02/18 04:40 Carbon Dioxide 27 mmol/L (22-30) 03/02/18 04:40 Anion Gap 9 (10-20) L 03/02/18 04:40 BUN 18 mg/dl (7-17) H 03/02/18 04:40 Creatinine 0.6 mg/dl (0.7-1.2) L 03/02/18 04:40 Est GFR ( Amer) > 60 03/02/18 04:40 Est GFR (Non-Af Amer) > 60 03/02/18 04:40 POC Glucose (mg/dL) 130 mg/dL (65-110) H 03/02/18 11:09 Random Glucose 85 mg/dL (65-105) 03/02/18 04:40 Hemoglobin A1c 4.6 % (4.2-6.5) 03/01/18 16:10 Calcium 9.7 mg/dL (8.4-10.2) 03/02/18 04:40 Total Bilirubin 2.2 mg/dl (0.2-1.3) H 03/02/18 04:40 AST 39 U/L (14-36) H 03/02/18 04:40 ALT 30 U/L (9-52) 03/02/18 04:40 Alkaline Phosphatase 89 U/L (38-126) 03/02/18 04:40 Troponin I < 0.0120 ng/mL (0.00-0.120) 03/02/18 07:44 NT-Pro-B Natriuret Pep 1440 pg/ml (0-900) H 03/01/18 17:00 Total Protein 5.8 G/DL (6.3-8.2) L 03/02/18 04:40 Albumin 2.8 g/dL (3.5-5.0) L 03/02/18 04:40 Globulin 3.0 gm/dL (2.2-3.9) 03/02/18 04:40 Albumin/Globulin Ratio 0.9 (1.0-2.1) L 03/02/18 04:40 Triglycerides 65 mg/DL (0-149) 03/01/18 17:00 Cholesterol 92 mg/dL (0-199) 03/01/18 17:00 LDL Cholesterol Direct 40 mg/dL (0-129) 03/01/18 17:00 HDL Cholesterol 50 MG/DL (30-70) 03/01/18 17:00 Urine Color Dark yellow (YELLOW) 03/01/18 14:40 Urine Clarity Turbid (Clear) 03/01/18 14:40 Urine pH 7.0 (5.0-8.0) 03/01/18 14:40 Ur Specific [place] 1.012 (1.003-1.030) 03/01/18 14:40 Urine Protein 100 mg/dL (NEGATIVE) 03/01/18 14:40 Urine Glucose (UA) Neg mg/dL (Normal) 03/01/18 14:40 Urine Ketones Negative mg/dL (NEGATIVE) 03/01/18 14:40 Urine Blood Large (NEGATIVE) 03/01/18 14:40 Urine Nitrate Positive (NEGATIVE) H 03/01/18 14:40 Urine Bilirubin Negative (NEGATIVE) 03/01/18 14:40 Urine Urobilinogen 2.0 mg/dL (0.2-1.0) H 03/01/18 14:40 Ur Leukocyte Esterase Large Demetrius/uL (Negative) 03/01/18 14:40 Urine RBC (Auto) 152 /hpf (0-3) H 03/01/18 14:40 Urine WBC Clumps (Auto) Many /hpf (NONE) H 03/01/18 14:40 Urine Microscopic WBC 1054 /hpf (0-5) H 03/01/18 14:40 Urine Bacteria Mod (<OCC) H 03/01/18 14:40 Attending/Attestation - Attestation I have personally seen and examined this patient.: Yes I have fully participated in the care of the patient.: Yes I have reviewed all pertinent clinical information, including history, physical exam and plan: Yes Notes (Text): 03/02/18 17:30 Patient seen and examined with resident. Cardiac chest pain was ruled out with 3 sets of negative Troponins and EKG. Patient was chest pain free. Her urine however turned positive for UTI. She was started on IV Rocephin and sent home with PO Macrobid. Patient was discharged in stable condition.
--- NOTE | 2018-03-02 16:10 | US ---
Date of service: 03/02/2018 HISTORY: bilateral leg swelling with elevated LFTs COMPARISON: None. TECHNIQUE: Grayscale imaging was performed. FINDINGS: LIVER: Measures 11.6 cm. Normal echogenicity of the liver parenchyma. No mass. No intrahepatic bile duct dilatation. GALLBLADDER: Surgically absent. COMMON BILE DUCT: Not well visualized. PANCREAS: Unremarkable as visualized. No mass. No ductal dilatation. RIGHT KIDNEY: Measures 10.9cm. Normal echogenicity. No calculus, mass, or hydronephrosis. LEFT KIDNEY: Measures 12.5cm. Normal echogenicity. No calculus, mass, or hydronephrosis. SPLEEN: Enlarged and measures 21.2 cm. Normal echotexture. AORTA: No aneurysmal dilatation. IVC: Unremarkable. OTHER FINDINGS: None. IMPRESSION: Severe splenomegaly. Status post cholecystectomy. The common bile duct is not well visualized.
[2018-03-02 16:42] VITALS: BP 136/78; PULSE 76; RESP 18; TEMP 98.2; O2SAT 97
== END 2018-03-02 17:45 | disposition home or self-care (01) ==
LOC: H.ER 11:35 → H.ERHOLD 14:29 → H.TEL 18:07
DX: R07.9 Chest pain, unspecified (principal); I10 Essential (primary) hypertension; K29.70 Gastritis, unspecified, without bleeding; Z96.653 Presence of artificial knee joint, bilateral; N39.0 Urinary tract infection, site not specified; D75.1 Secondary polycythemia; R17 Unspecified jaundice
CPT/HCPCS: 36415; 71046; 76700; 80053; 80061; 81003; 82948; 83036; 83880; 84484; 85025; 85027; 87040; 87086; 93005; 93306; 93970; 93971; 96372; 96374; 99282; G0378; J0696; J1650

== ENCOUNTER 2018-06-10 11:44 | Inpatient (IN) | payer MEDICARE ==
[2018-06-10] MEDS ORDERED: Albuterol-Ipratrop 3 mg / 0.5 (3 ml) UD INH STA (12:22)
[2018-06-10] MEDS ORDERED: Albuterol-Ipratrop 3 mg / 0.5 (3 ml) UD ONE (12:39)
--- NOTE | 2018-06-10 12:47 | ED PDOC ---
History of Present Illness History of Present Illness: 88yo female, comes to ER reporting cough, congestion, and flu like symptoms x 2 days. She reports associated headache, bodyaches, and chest pain s/p cough; also reports shortness of breath after cough. She denies any abdominal pain, nausea, vomiting or diarrhea. She also denies any weakness, numbness and has no additional medical complaints. HPI: Influenza Time Seen by Provider: 06/10/18 12:04 Chief Complaint: Cough, Cold, Congestion Chief Complaint (Provider): Cough, flu like symptoms History Per: Patient Exam Limitations: no limitations Have you had recent travel within the past 21 days to any of: No Onset/Duration Of Symptoms: Days Symptoms include: fever, headache, bodyaches, cough. denies: vomiting, diarrhea, syncope, seizure, rash Sick Contacts (Context): None Past Medical History Reviewed: Historical Data, Nursing Documentation, Vital Signs Vital Signs: Last Vital Signs Temp 98.1 F 06/10/18 11:50 Pulse 109 H 06/10/18 11:50 Resp 20 06/10/18 11:50 BP 158/86 H 06/10/18 11:50 Pulse Ox 97 06/10/18 11:50 - Medical History PMH: Gastritis, HTN Denies: Chronic Kidney Disease - Surgical History Surgical History: No Surg Hx - Family History Family History: States: Other Other Family History: mother of cancer - Social History Current smoker - smoking cessation education provided: No Alcohol: None Drugs: Denies - Home Medications Home Medications: Ambulatory Orders Medication Instructions Recorded Furosemide [Lasix] 80 mg PO DAILY 01/13/18 Meclizine [Meclizine*] 25 mg PO Q8 PRN 01/13/18 Metoprolol Tartrate [Lopressor] 100 mg PO Q12 01/13/18 Pantoprazole Sodium [Protonix] 40 mg PO DAILY 01/13/18 Ibuprofen [Motrin Tab] 200 mg PO Q6 PRN 06/10/18 clonazePAM [Klonopin] 0.5 mg PO DAILY 06/10/18 - Allergies Allergies/Adverse Reactions: Allergies Allergy/AdvReac Type Severity Reaction Status Date / Time No Known Allergies Allergy Verified 06/10/18 11:54 Review of Systems ROS Statement: Except As Marked, All Systems Reviewed And Found Negative Constitutional: Positive for: Fever (tactile), Weakness, Malaise Cardiovascular: Positive for: Chest Pain Respiratory: Positive for: Cough, Shortness of Breath Gastrointestinal: Negative for: Nausea, Vomiting, Abdominal Pain Physical Exam - Reviewed Nursing Documentation Reviewed: Yes Vital Signs Reviewed: Yes - Physical Exam Appears: Positive for: Non-toxic, No Acute Distress Head Exam: Positive for: ATRAUMATIC, NORMAL INSPECTION, NORMOCEPHALIC Skin: Positive for: Normal Color, Warm, DRY Eye Exam: Positive for: EOMI, Normal appearance, PERRL ENT: Positive for: Normal ENT Inspection Neck: Positive for: Normal, Painless ROM, Supple Cardiovascular/Chest: Positive for: Regular Rate, Rhythm. Negative for: Tachycardia Respiratory: Positive for: Normal Breath Sounds. Negative for: Rales, Rhonchi, Wheezing, Respiratory Distress Gastrointestinal/Abdominal: Positive for: Normal Exam, Soft. Negative for: Tenderness, Guarding, Rebound Back: Positive for: Normal Inspection. Negative for: L CVA Tenderness, R CVA Te nderness Extremity: Positive for: Normal ROM, Pedal Edema (chronic lower extremity swelling with venous stasis skin changes). Negative for: Deformity Neurologic/Psych: Positive for: Alert, Oriented. Negative for: Motor/Sensory Deficits Medical Decision Making Medical Decision Making: Impression: Flu like illness, shortness of breath Differential: Acute bronchitis, pneumonia Plan: -- Labs -- CXR -- Rapid flu -- Duoneb 3ml INH -- Solumedrol 125mg IVP 1350 Flu A positive CXR reviewed, no acute findings 1440 CXR FINDINGS: LUNGS: No active pulmonary disease. PLEURA: No significant pleural effusion identified. No pneumothorax apparent. CARDIOVASCULAR: No aortic atherosclerotic calcification present. Normal cardiac size. No congestive change. Left central venous infusion port. OSSEOUS STRUCTURES: Bilateral glenohumeral osteoarthritis. VISUALIZED UPPER ABDOMEN: Normal. OTHER FINDINGS: None. IMPRESSION: No active disease. 1500 Discussed with patient and family, states she is currently establishing care with Dr. Fiona Brizuela in [place]; does not consider Dr. Lux as her PMD at this time. Discussed case with Dr. Mendoza, covering for Dr. Brizuela and will admit patient due to influenza and bronchitis. Scribe Attestation: Documented by Lottie Sanches acting as a scribe for Sandi Bernal MD Provider Attestation: All medical record entries made by the Scribe were at my direction and personally dictated by me. I have reviewed the chart and agree that the record accurately reflects my personal performance of the history, physical exam, medical decision making, and the department course for this patient. I have also personally directed, reviewed, and agree with the discharge instructions and disposition. - Laboratory Results Result Diagrams: 06/10/18 12:30 06/10/18 14:30 - ECG O2 Sat by Pulse Oximetry: 97 Disposition - Clinical Impression Clinical Impression: Influenza A, Bronchitis - Patient ED Disposition Is Patient to be Admitted: Yes Discussed With : Severo Mendoza Doctor Will See Patient In The: Hospital Counseled Patient/Family Regarding: Studies Performed, Diagnosis - Disposition Disposition Time: 15:00 Condition: FAIR - Pt Status Changed To: Hospital Disposition Of: Observation - POA Present On Arrival: None
[2018-06-10 13:30] LABS: BASO # 0.1 K/uL (0.0-0.2); BASO % 2.5 % (0.0-2.0); EOS # 0.1 K/uL (0.0-0.7); EOS % 2.2 % (0.0-4.0); HEMOGLOBIN 16.6 g/dL (12.0-16.0); LYMPH # 0.4 K/uL (1.0-4.3); LYMPH % 11.1 % (20.0-40.0); MEAN CELL VOLUME 73.2 fl (81.0-99.0); MEAN CORPUSCULAR HEMOGLOBIN 22.8 pg (27.0-31.0); MEAN CORPUSCULAR HGB CONC 31.1 g/dL (33.0-37.0); MEAN PLATELET VOLUME 8.5 fl (7.2-11.7); MONO # 0.4 K/uL (0.0-0.8); MONO % 13.2 % (0.0-10.0); NEUT # 2.2 K/uL (1.8-7.0); NRBC % 0.5 % (0.0-0.0); RBC 7.29 Mil/uL (3.80-5.20); RED CELL DISTRIBUTION WIDTH 22.1 % (11.5-14.5); WHITE BLOOD COUNT 3.2 K/uL (4.8-10.8)
[2018-06-10] MEDS ORDERED: Sodium Chloride 0.9% 500 ML IV STA (13:49)
--- NOTE | 2018-06-10 14:43 | RAD ---
Date of service: 06/10/2018 HISTORY: chest pain COMPARISON: 03/01/2018 TECHNIQUE: Chest PA and lateral FINDINGS: LUNGS: No active pulmonary disease. PLEURA: No significant pleural effusion identified. No pneumothorax apparent. CARDIOVASCULAR: No aortic atherosclerotic calcification present. Normal cardiac size. No congestive change. Left central venous infusion port. OSSEOUS STRUCTURES: Bilateral glenohumeral osteoarthritis. VISUALIZED UPPER ABDOMEN: Normal. OTHER FINDINGS: None. IMPRESSION: No active disease.
[2018-06-10 14:50] LABS: ALB/GLOB RATIO 1.1 (1.0-2.1); ALBUMIN 3.1 g/dL (3.5-5.0); ALT/SGPT 29 U/L (9-52); AST/SGOT 54 U/L (14-36); BLOOD UREA NITROGEN 14 mg/dl (7-17); CALCIUM 9.2 mg/dL (8.4-10.2); GFR NON-AFRICAN AMERICAN > 60
--- NOTE | 2018-06-10 23:41 | CARD ---
APPROVED REPORT Date of service: 06/10/2018 EKG Measurement Heart [id number] <Conclusion> Sinus tachycardia with 1st degree AV block Low voltage QRS Possible Septal infarct, age undetermined Abnormal ECG
[2018-06-11] MEDS: Enoxaparin 40 mg Syringe SC SCH (10:08)
[2018-06-11] MEDS ORDERED: IBUPROFEN 200 MG PO PRN (19:14)
--- NOTE | 2018-06-11 21:30 | HP ---
CHIEF COMPLAINT: Cough, congestion, flu-like symptoms for 2 days. HISTORY OF PRESENT ILLNESS: This is an 88-year-old female, known case of hypertension and gastritis, who was having cough, cold, congestion, flu-like symptoms, generalized malaise, weakness, and fevers. The patient was brought to the emergency room and was admitted for further management. REVIEW OF SYSTEM: Positive for generalized malaise, weakness, fatigue, tiredness, cough, congestion, generalized body ache, headache, diarrhea, vomiting. Review of system is otherwise negative for chest pain, shortness of breath, nausea, vomiting, diarrhea, constipation, anemia, joint or extremity pain. Review of system of all other organ system is unremarkable. PAST MEDICAL HISTORY: Significant for hypertension and gastritis. PAST SURGICAL HISTORY: Unremarkable. PERSONAL HISTORY: The patient is currently nonsmoker, nondrinker. No substance abuse. MEDICATION: The patient is on Lasix, meclizine, Lopressor, Protonix, Motrin, and Klonopin. ALLERGIES: THE PATIENT IS NOT ALLERGIC TO ANY MEDICATION. FAMILY HISTORY: Significant for stomach cancer in the patient's mother. PHYSICAL EXAMINATION: GENERAL: Well-built, well-nourished 88-year-old female, in no acute distress. The patient does look like a sick looking elderly female. VITAL SIGNS: Temperature 98.3, pulse 73, respirations 20, blood pressure 147/47, and saturation 97%. HEENT: Pupils reacting to light. No JVD. No thyromegaly. No lymphadenopathy. No nystagmus. Normocephalic, atraumatic skull. HEART: S1, S2 normal; regular. No significant murmur, gallop, or rub is heard. LUNGS: Good bilateral air exchange. No rales or rhonchi. ABDOMEN: Soft and nontender. No organomegaly. No fluid. Bowel sounds are plus and normal. EXTREMITIES: No edema. No calf swelling. No tenderness. No acute ischemia. CENTRAL NERVOUS SYSTEM: Essentially unchanged, and there is no sign of any acute gross focal motor or sensory neurological deficits. DIAGNOSTIC DATA: Available diagnostic data reviewed. WBC 3.2, hemoglobin 16.6, hematocrit 53.4, platelets 234. Sodium 132, potassium 4.3, chloride 97, bicarb 26, BUN 14, creatinine 0.6. SMA-12 shows total bilirubin of 1.9, AST of 54. Flue test is positive. Chest x-ray is clear. ADMITTING IMPRESSION: Influenza, hypertension, gastritis. PLAN: As ordered. Case and plan discussed with the patient. Severo Mendoza MD
[2018-06-12] MEDS ORDERED: guaiFENesin DM 200 mg-20 mg/10 ml UD PO PRN (02:00)
[2018-06-12] MEDS ORDERED: Benzocaine/Menthol (Cepacol) Lozenge PO PRN (02:02)
[2018-06-12 06:56] LABS: HEMOGLOBIN 16.5 g/dL (12.0-16.0); MEAN CELL VOLUME 72.3 fl (81.0-99.0); MEAN CORPUSCULAR HGB CONC 31.8 g/dL (33.0-37.0); RBC 7.16 Mil/uL (3.80-5.20); RED CELL DISTRIBUTION WIDTH 21.4 % (11.5-14.5); WHITE BLOOD COUNT 3.7 K/uL (4.8-10.8)
[2018-06-12 07:43] LABS: ALB/GLOB RATIO 1.1 (1.0-2.1); ALBUMIN 2.9 g/dL (3.5-5.0); ALT/SGPT 28 U/L (9-52); AST/SGOT 42 U/L (14-36); BLOOD UREA NITROGEN 18 mg/dl (7-17); CALCIUM 9.5 mg/dL (8.4-10.2); GFR NON-AFRICAN AMERICAN > 60
[2018-06-12] MEDS: Enoxaparin 40 mg Syringe SC SCH (08:56)
[2018-06-12] MEDS: Pantoprazole 40 mg EC Tab PO SCH (08:58)
[2018-06-12] MEDS ORDERED: AMLODIPINE BESYLATE PO SCH (09:00)
[2018-06-12] MEDS ORDERED: BENAZEPRIL PO SCH (09:00)
[2018-06-12] MEDS ORDERED: [UNRECOGNIZED DRUG - OTHER] PO SCH (09:00)
--- NOTE | 2018-06-12 09:26 | PN ---
DATE: 06/12/2018 SUBJECTIVE: The patient seen and examined. Interim events noted. The patient remains in regular medical floor in isolation for influenza and droplet precautions. The patient feels better, still has coughing. No chest pain or shortness of breath. No specific issue reported by nursing staff. PHYSICAL EXAMINATION: GENERAL: The patient is in no acute distress. VITAL SIGNS: Stable. HEART: S1 and S2, normal and regular. LUNGS: Good bilateral air exchange. ABDOMEN: Soft, nontender. EXTREMITIES: No edema, no calf swelling, no tenderness. No acute ischemia. CENTRAL NERVOUS SYSTEM: Exam is essentially unchanged. DIAGNOSTIC DATA: Available diagnostic data reviewed. Blood culture is negative. ASSESSMENT AND PLAN: Overall, the patient is slowly improving. Plan as ordered. Severo Mendoza MD
[2018-06-13] MEDS ORDERED: Albuterol-Ipratrop 3 mg / 0.5 (3 ml) UD INH STA (07:21)
[2018-06-13 08:42] LABS: HEMOGLOBIN 16.9 g/dL (12.0-16.0); MEAN CELL VOLUME 73.1 fl (81.0-99.0); MEAN CORPUSCULAR HEMOGLOBIN 23.1 pg (27.0-31.0); MEAN CORPUSCULAR HGB CONC 31.6 g/dL (33.0-37.0); RBC 7.29 Mil/uL (3.80-5.20); RED CELL DISTRIBUTION WIDTH 21.2 % (11.5-14.5); WHITE BLOOD COUNT 3.7 K/uL (4.8-10.8)
[2018-06-13 08:59] LABS: ALB/GLOB RATIO 1.1 (1.0-2.1); ALBUMIN 2.9 g/dL (3.5-5.0); BLOOD UREA NITROGEN 18 mg/dl (7-17); CALCIUM 9.4 mg/dL (8.4-10.2); GFR NON-AFRICAN AMERICAN > 60
[2018-06-13 09:06] LABS: ALT/SGPT 29 U/L (9-52); AST/SGOT 47 U/L (14-36)
[2018-06-13] MEDS: Enoxaparin 40 mg Syringe SC SCH (09:39)
[2018-06-13] MEDS: Pantoprazole 40 mg EC Tab PO SCH (09:40)
[2018-06-13] MEDS ORDERED: MethylPREDNISolone 40 mg Vial ONE (09:55)
[2018-06-13] MEDS ORDERED: MethylPREDNISolone 40 mg Vial IVP ONE (10:00)
--- NOTE | 2018-06-13 10:08 | PN ---
DATE: 06/13/2018 SUBJECTIVE: The patient seen and examined. Interim events noted. The patient remains in regular medical floor with isolation. Feels much better. Cough improved. No chest pain. No shortness of breath. PHYSICAL EXAMINATION: GENERAL: The patient is in no acute distress. VITAL SIGNS: Stable. CARDIAC: S1 and S2 normal and regular. LUNGS: Good bilateral air exchange. ABDOMEN: Soft, nontender. EXTREMITIES: No edema. No calf swelling or tenderness. No acute ischemia. CENTRAL NERVOUS SYSTEM: Exam is essentially unchanged. DIAGNOSTIC DATA: Available diagnostic data reviewed. ASSESSMENT AND PLAN: Overall, the patient's general medical condition is stable and improving. Plan as ordered. Severo Mendoza MD
[2018-06-13] MEDS: Albuterol-Ipratrop 3 mg / 0.5 (3 ml) UD INH SCH ×2 (13:04→19:38)
[2018-06-13] MEDS: MethylPREDNISolone 40 mg Vial IVP SCH ×2 (13:55→21:32)
[2018-06-13] MEDS: Acetylcysteine 10% 4 ML IH SCH ×2 (14:53→19:38)
[2018-06-13] MEDS ORDERED: methylPREDNISolone 30 MG in Sodium Chloride 0.9% 50 ML IV SCH (17:00)
[2018-06-14] MEDS: Albuterol-Ipratrop 3 mg / 0.5 (3 ml) UD INH SCH ×4 (02:07→19:41)
[2018-06-14] MEDS: MethylPREDNISolone 40 mg Vial IVP SCH ×2 (05:25→14:38)
[2018-06-14 06:29] LABS: HEMOGLOBIN 17.9 g/dL (12.0-16.0); MEAN CELL VOLUME 72.8 fl (81.0-99.0); MEAN CORPUSCULAR HEMOGLOBIN 23.2 pg (27.0-31.0); MEAN CORPUSCULAR HGB CONC 31.9 g/dL (33.0-37.0); RBC 7.69 Mil/uL (3.80-5.20); RED CELL DISTRIBUTION WIDTH 21.6 % (11.5-14.5); WHITE BLOOD COUNT 4.5 K/uL (4.8-10.8)
[2018-06-14 06:37] LABS: ALB/GLOB RATIO 0.9 (1.0-2.1); ALBUMIN 2.6 g/dL (3.5-5.0); ALT/SGPT 20 U/L (9-52); AST/SGOT 36 U/L (14-36); BLOOD UREA NITROGEN 23 mg/dl (7-17); CALCIUM 9.5 mg/dL (8.4-10.2); GFR NON-AFRICAN AMERICAN > 60
[2018-06-14] MEDS: Acetylcysteine 10% 4 ML IH SCH ×3 (07:55→19:41)
[2018-06-14] MEDS: Pantoprazole 40 mg EC Tab PO SCH (10:44)
[2018-06-14] MEDS: Enoxaparin 40 mg Syringe SC SCH (10:55)
--- NOTE | 2018-06-14 12:12 | CP.PCM.DIS ---
Provider - Provider Date of Admission: 06/12/18 16:00 Attending physician: Severo Mendoza MD Consults: 06/11/18 01:59 Case Management Referral Routine Comment: Physician Instructions: Reason For Exam: Reason for Referral: Discharge Planning Time Spent in preparation of Discharge (in minutes): 30 Diagnosis - Discharge Diagnosis (1) Bronchitis Status: Acute (2) Influenza A Status: Acute (3) Hypertension Status: Chronic (4) Polycythemia Status: Chronic Hospital Course - Lab Results Lab Results: Micro Results 06/10/18 12:50 Blood-Venous Blood Culture - Preliminary NO GROWTH AFTER 3 DAYS 06/10/18 12:30 Blood-Venous Blood Culture - Preliminary NO GROWTH AFTER 3 DAYS Most Recent Lab Values WBC 4.5 K/uL (4.8-10.8) L 06/14/18 05:40 RBC 7.69 Mil/uL (3.80-5.20) H 06/14/18 05:40 Hgb 17.9 g/dL (12.0-16.0) H 06/14/18 05:40 Hct 56.0 % (34.0-47.0) H 06/14/18 05:40 MCV 72.8 fl (81.0-99.0) L 06/14/18 05:40 MCH 23.2 pg (27.0-31.0) L 06/14/18 05:40 MCHC 31.9 g/dL (33.0-37.0) L 06/14/18 05:40 RDW 21.6 % (11.5-14.5) H 06/14/18 05:40 Plt Count 201 K/uL (130-400) 06/14/18 05:40 MPV 8.5 fl (7.2-11.7) 06/10/18 12:30 Neut % (Auto) 71.0 % (50.0-75.0) 06/10/18 12:30 Lymph % (Auto) 11.1 % (20.0-40.0) L 06/10/18 12:30 [place] % (Auto) 13.2 % (0.0-10.0) H 06/10/18 12:30 Eos % (Auto) 2.2 % (0.0-4.0) 06/10/18 12:30 Baso % (Auto) 2.5 % (0.0-2.0) H 06/10/18 12:30 Neut # (Auto) 2.2 K/uL (1.8-7.0) 06/10/18 12:30 Lymph # (Auto) 0.4 K/uL (1.0-4.3) L 06/10/18 12:30 [place] # (Auto) 0.4 K/uL (0.0-0.8) 06/10/18 12:30 Eos # (Auto) 0.1 K/uL (0.0-0.7) 06/10/18 12:30 Baso # (Auto) 0.1 K/uL (0.0-0.2) 06/10/18 12:30 Sodium 132 mmol/l (132-148) 06/14/18 05:40 Potassium 4.2 MMOL/L (3.6-5.0) 06/14/18 05:40 Chloride 94 mmol/L (98-107) L 06/14/18 05:40 Carbon Dioxide 28 mmol/L (22-30) 06/14/18 05:40 Anion Gap 14 (10-20) 06/14/18 05:40 BUN 23 mg/dl (7-17) H 06/14/18 05:40 Creatinine 0.7 mg/dl (0.7-1.2) 06/14/18 05:40 Est GFR ( Amer) > 60 06/14/18 05:40 Est GFR (Non-Af Amer) > 60 06/14/18 05:40 Random Glucose 117 mg/dL (65-105) H 06/14/18 05:40 Calcium 9.5 mg/dL (8.4-10.2) 06/14/18 05:40 Phosphorus 2.6 mg/dl (2.5-4.5) 06/12/18 05:30 Magnesium 1.5 MG/DL (1.6-2.3) L 06/12/18 05:30 Total Bilirubin 1.5 mg/dl (0.2-1.3) H 06/14/18 05:40 AST 36 U/L (14-36) D 06/14/18 05:40 ALT 20 U/L (9-52) 06/14/18 05:40 Alkaline Phosphatase 108 U/L (38-126) 06/14/18 05:40 Total Protein 5.6 G/DL (6.3-8.2) L 06/14/18 05:40 Albumin 2.6 g/dL (3.5-5.0) L 06/14/18 05:40 Globulin 3.0 gm/dL (2.2-3.9) 06/14/18 05:40 Albumin/Globulin Ratio 0.9 (1.0-2.1) L 06/14/18 05:40 Influenza Typ A,B (EIA) Pos for influenza a (NEGATIVE) H 06/10/18 12:29 - Hospital Course Hospital Course: 88 year old female with PMHx of HTN, polycythemia, gastritis, and vertigo presents to [facility] ER on 06/10/18 for cough, congestion, headache and bodyaches x 2 days. Patient was found to have influenza A and admitted for influenza and bronchitis. CXR was neg for acute infiltrate. Patient remained afebrile with stable vitals. Patient completed a course of Tamiflu and blood cx remains neg after 4 days. This morning, patient reports she feeling better but still has mild cough. Denies dyspnea, chest pain, fever or chills. Patient is hemodynamically stable to discharge home. Advised to follow up with PMD within 2-3 days. Discharge Exam - Head Exam Head Exam: ATRAUMATIC, NORMAL INSPECTION, NORMOCEPHALIC - Eye Exam Eye Exam: Normal appearance - ENT Exam ENT Exam: Mucous Membranes Moist - Respiratory Exam Respiratory Exam: Clear to PA & Lateral, NORMAL BREATHING PATTERN. absent: Wheezes Additional comments: Mild crackles on left lung base - Cardiovascular Exam Cardiovascular Exam: REGULAR RHYTHM, +S1, +S2 - GI/Abdominal Exam GI & Abdominal Exam: Normal Bowel Sounds, Soft. absent: Tenderness - Extremities Exam Extremities exam: pedal edema (1+) - Neurological Exam Neurological exam: Alert - Skin Skin Exam: Dry, Warm Discharge Plan - Discharge Medications Prescriptions: guaiFENesin/Dextromethorphan [Robitussin DM] 10 ml PO Q6 PRN #20 udc PRN Reason: Cough Hydroxyurea [Hydrea] 500 mg PO DAILY #30 cap - Follow Up Plan Condition: FAIR Disposition: HOME/ ROUTINE Instructions: Flu, Adult (DC) Additional Instructions: hacer samuel con peters primario dentro 1 semana follow up with primary MD 1 week Referrals: Severo Mendoza MD [Staff Provider] - Claudio Lux MD [Family Provider] -
[2018-06-14 16:01] VITALS: BP 116/67; PULSE 67; RESP 20; TEMP 98.3; O2SAT 93
== END 2018-06-14 20:00 | disposition home or self-care (01) | DRG 195 ==
LOC: H.ER 11:44 → H.ERHOLD 15:23 → OBSVTOIN 15:23 → INTOOBSV 15:23 → H.MEDSURG1 22:14 → OBSVTOIN 06-12 16:00
PROVIDERS: ADMIT Internal Medicine; ATTEND Internal Medicine
DX: J10.1 Influenza due to other identified influenza virus with other respiratory manifestations (principal); J40 Bronchitis, not specified as acute or chronic; I10 Essential (primary) hypertension; K29.70 Gastritis, unspecified, without bleeding; D75.1 Secondary polycythemia